=== PATIENT | female | born 1980 | race Caucasian/White ===

== ENCOUNTER 2024-01-20 08:51 | Outpatient (CLI) | payer BC, SELFPAY | END 2024-01-20 08:52 | disposition home or self-care (01) | PROVIDERS: PCP Physician Assistant Medical; Visit Provider Physician Assistant Medical | DX: Z00.00 Encounter for general adult medical examination without abnormal findings (principal); D50.9 Iron deficiency anemia, unspecified; E66.9 Obesity, unspecified; Z13.6 Encounter for screening for cardiovascular disorders; Z13.1 Encounter for screening for diabetes mellitus; Z13.0 Encounter for screening for diseases of the blood and blood-forming organs and certain disorders involving the immune mechanism | CPT/HCPCS: 80061; 80076; 82607; 82728; 83540; 83550; 84443 ==

== ENCOUNTER 2024-03-18 14:08 | Outpatient (CLI) | payer BC, SELFPAY ==
--- OUTSIDE RECORDS SUMMARY | 2024-03-18 14:13 | XMS_ITS | Clinical Summary ---
Author Organization [facility] Address [place], [place] [address] Care Team Providers Care Geospatial Developer Name Role Phone Dexter Molina MD Primary Care Provider + Allergies Active Allergy Reactions Criticality Noted Date Comments Acetaminophen GI Upset 06/22/2010 Adhesive Rash 01/05/2010 Amoxicillin Hives 05/15/2007 Ciprofloxacin Rash 10/11/2014 Also was on malarone and had been in sun. ?which was cause. Has tolerated levaquin. Codeine Nausea Only 07/15/2007 Hydrocodone-Acetaminoph en Headache,Vomiting 01/05/2010 Atovaquone-Proguanil Rash 10/11/2014 Face swelling and rash on trunk and arms. Had been in sun ? Photosensitivity. Also had taken one dose of ciprofloxacin. ?cause Nsaids (Non-Steroidal Anti-Inflammatory Drug) Other - Describe In Comment Field 06/26/2016 Patient had bariatric surgery. Should not ever take NSAIDS due to high risk for gastric ulcers. Pt has had laproscopic gastrectomy sleeve,should not use any nsaids. Penicillins Hives 01/09/2010 Medications Medication Sig Dispensed Refills Start Date End Date Status aspirin-acetaminop hen-caffeine, 250-250-65 mg, (EXCEDRIN EXTRA STRENGTH) 250-250-65 mg tablet Take 1 tablet by mouth every 6 hours if needed for Headache. Max acetaminophen dose: 4000mg in 24 hrs. Active Cholecalciferol, Vitamin D3, 5,000 unit tab Take 5,000 Units by mouth once daily. Active loratadine (CLARITIN) 10 mg tablet Take 10 mg by mouth once daily if needed for Allergy Symptoms. Mornings if needed Active cetirizine (ZYRTEC) 10 mg tablet Take 10 mg by mouth once daily if needed for Other (Specify). Take in the evening as needed Active NebulizerIndicatio ns:Moderate persistent asthma without complication Nebulizer, disposable neb kit x 4, reuseable neb kit x 1, mask x 1, filters x 1. 1 Device 07/29/2017 Active albuterol HFA (PRO-AIR; VENTOLIN; PROVENTIL) 90 mcg/actuation inhalerIndications :Mild intermittent asthma with acute exacerbation,Mild intermittent asthma with exacerbation Inhale 2 Puffs by mouth every 4 hours if needed. 1 Each 02/17/2021 Active albuterol-ipratrop ium (DuoNeb) (2.5-0.5 mg) in 3 mL NEBULIZATION solutionIndication s:Mild intermittent asthma with acute exacerbation,Mild intermittent asthma with exacerbation Inhale 3 mL via a nebulizer every 6 hours if needed. 1 box 3 02/17/2021 Active budesonide-formote roL (Symbicort) 160-4.5 mcg/actuation (160-4.5 mcg each actuation) inhalerIndications :Mild intermittent asthma with acute exacerbation Inhale 2 Puffs by mouth two times daily. 10.2 g 3 06/05/2022 Active BinaxNOW COVID-19 Ag Self Test kit TEST DIRECTED TODAY 09/13/2022 Active norethindrone, Contraceptive, (MICRONOR, 28,) 0.35 mg tablet 10/08/2022 Active omeprazole (PRILOSEC) 20 mg Delayed-Release capsuleIndications :Gastroesophageal reflux disease, unspecified whether esophagitis present TAKE 1 CAPSULE(20 MG) BY MOUTH EVERY DAY BEFORE A MEAL 90 Capsule 06/09/2023 Active hydrOXYzine HCL (ATARAX) 25 mg tabletIndications: Pruritus Take 1 Tablet (25 mg) by mouth every 6 hours if needed for Itching. 25 Tablet 11/21/2023 Active buPROPion (WELLBUTRIN XL) 300 mg Extended-Release tablet 01/20/2024 Active cyclobenzaprine (FLEXERIL) 10 mg tablet 01/20/2024 Active naltrexone (REVIA) 50 mg tablet 01/20/2024 Active medroxyPROGESTERon e acetate, contraceptive, (Depo-Provera) 150 mg/mL injection Inject 150 mg intramuscular. 03/03/2024 Active CPAPIndications:OS A (obstructive sleep apnea) CPAP machine for home use at pressure 4-15 cmw, nasal mask x1/3month with nasal cushion x2/mo 1 Each 11 02/04/2024 Active Active Problems Problem Noted Date Diagnosed Date B12 deficiency 06/06/2022 Colon polyp, due 08/202507/29/2019 Overview: 08/2022 - due 2024 5 mm sessile serrated adenoma in the transverse colon 3 mm hyperplastic polyp in the rectum 2018 4 mm sessile serrated adenoma in the transverse colon Two 3 mm hyperplastic polyps in the rectum Migraine with aura, not intr actable, without status migrainosus 11/03/2018 Achlorhydria 06/26/2016 Vitamin B 12 deficiency 06/26/2016 S/P laparoscopic sleeve gastrectomy 06/20/2016 Morbid obesity with BMI of 40.0-44.9, adult 06/09 DARIUS 06/26/2009 AHI-10 06/21/2014 PCOS (polycystic ovarian syndrome) 01/13/2013 Metabolic syndrome 01/13/2013 Irregular periods/menstrual cycles 12/23/2012 Allergic rhinitis, cause unspecified 09/10/2007 Unspecified asthma(493.90) 09/10/2007 Ganglion, unspecified 07/15/2007 Iron deficiency anemia Gastroesophageal reflux disease Resolved Problems Problem Noted Date Diagnosed Date Resolved Date Postoperative anemia due to acute blood loss 8 06/06/2022 Arrest of descent, delivered , current hospitalization 08/01/2018 06/06/2022 Polyhydramnios in third trimester 07/30/2018 06/06/2022 Well woman exam with routine gynecological exam 01/28/2015 01/23/2016 Sleep apnea 12/04/2012 01/28/2017 Overview: Mild. Doesn't tolerate CPAP. Ganglion, unspecified 07/18/20072007 Ultrasound scan to recheck l ow lying placenta, antepartum 06/06/2022 anomaly suspected but not found 06/06/2022 Umbilical cord cyst during p regnancy, antepartum 06/06/2022 Encounters Date Type Department Care Team Description 02/04/2024 2:00 PM CDT Office Visit [facility] [address] [place] [address] Basilio Calderón MD Sleep Follow-up 02/04/2024 Orders Only [facility] Scanner 1 scan: (1-Ord) 3B MEDICAL, COMPLIANCE REPORT, 02/04/2024 02/04/2024 Travel from Last 3 Months Immunizations Name Administration Dates Next Due AMB Influenza, IIV3 (Age >=3 years)(Flu Clinic Only) 07/07/2008 COVID-19 vaccine (C3Nano NTMill33 30mcg/0.3mL) PAPO NEGRON 08/30/2021,01/05/2021,12/15/2020 Hepatitis A (Adult) 07/12/2014 Hepatitis B (Peds) 01/20/2001,05/24/2000, 000 Human Papilloma Virus Vaccine 05/15/2007, 007,11/04/2006 Influenza Virus, Unspecified 06/01/2014, 06/03/2012,06/07/2011,06/07,07/04/2001,07/11/1999 Influenza, IIV3 (Age >=3 years) 06/02/2013,07/01 Meningococcal Vaccine (Menactra) 04/09/2000 Meningococcal Vaccine (Menomune) 04/09/2000 Pneumococcal Poly,23-Valent (Pneumovax) 07/12/2014 Td (Age >=7 Years) 03/29/1998 Td, Preservative Free (age >= 7 Years) 7 Tdap 05/16/2018,12/23/2012,03/29/1998 Typhoid (injectable) 07/12/2014 Yellow Fever 07/12/2014 Family History Medical History Relation Name Comments Diabetes Father Heart failure Father Hyperlipidemia Father Hypertension Father Other Father Obesity Valvular heart disease Father bicus pid Cancer Maternal Grandmother bladder Heart Disease Maternal Grandmother stents in heart Hyperlipidemia Maternal Grandmother Hyperlipidemia Mother Hypertension Mother Psychiatric illness Mother depressi on Heart Disease Paternal Grandfather Hyperlipidemia Paternal Grandfather Heart Disease Paternal Grandmother Hyperlipidemia Paternal Grandmother Mitral valve prolapse Paternal Grandmother Relation Name Status Comments Father Alive Maternal Grandmother Mother Alive Paternal Grandfather Paternal Grandmother Sister Alive Social History Tobacco Use Types Packs/Day Years Used Date Smoking Tobacco: Never Smokeless Tobacco: Never Tobacco Cessation:Counseling Given: Yes Alcohol Use Standard Drinks/Week Comments Yes 0 (1 standard drink = 0.6 oz pur e alcohol) very occational PHQ-2 Answer Date Recorded PHQ-2 TOTAL SCORE 2 11/06/2022 Social Connections Answer Date Recorded Frequency of Communication with Friends and Fami ly 0 11/21/2023 Financial Resource Strain Answer Date R ecorded Difficulty of Paying Living Expenses 3 11/21/2023 Difficulty of Paying Living Expenses Not on file 11/21/2023 Food Insecurity Answer Date Recorded Worried About Running Out of Food in the Last Ye ar 1 11/21/2023 Transportation Needs Answer Date Record ed Lack of Transportation (Medical) 1 11/21/2023 Housing Stability Answer Date Recorded Unable to Pay for Housing in the Last Year 1 11/21/2023 Sex and Gender Information Value Date Recorded Sex Assigned at Not on file Gender Identity Not on file Sexual Orientation Not on file Obstetrics History Para Term AB IAB SAB Ectopic Multiple Livin g Live Births 1 1 1 0 0 0 0 0 0 1 1 Date Outcome GA Total Labor Labor/2nd/3rd Weight Sex Type Anes PTL Aleena A1 A5 Name Clin 2017 Term 39w 2d 0h 02m 3.83 kg (8 lb 7.1 oz) M C-Sec tion Epidur al Livin g 9 9 Ho Rodrigo Delivery Location:[facility]) Last Filed Vital Signs Vital Sign Reading Time Taken Comments Blood Pressure 119/84 02/04/2024 2:03 PM CDT Pulse 67 02/04/2024 2:03 PM CDT Temperature 36.8 ??C (98.3 ??F) 11/21/2023 7:21 AM CD T Respiratory Rate 16 09/04/2022 12:1 5 PM QUALITY CONTROL SUPERVISOR Oxygen Saturation 97% 02/04/2024 2:03 PM CDT Inhaled Oxygen Concentration - - Weight 122.1 kg (269 lb 3.2 oz) 02/04/2024 2:03 PM CDT Height 165.1 cm (5' 5) 02/04/2024 2:03 PM CDT Body Mass Index 44.8 02/04/2024 2:03 PM CDT Plan of Treatment Health Maintenance Due Date Last Done Comments Pneumococcal series for age 6-64 (2 of 2 - PCV) 07/12/2015 07/12/2014 COVID-19 vaccine series (4 - 2022- season) 2023 08/30/2021, 01/05/2021, 12/15/2020 Depression screening for age 12+ 11/06/2023 11/06/2022, 11/06/2022, 06/12/2022, Additional history exists Influenza for age 9-49 05/10/2024 4, 06/01/2014, 06/02/2013, Additional history exists BMI (ht and wt on same day) for age 18+ 02/03/2025 02/04/2024, 11/06/2022, 06/12/2022, Additional history exists Pap test for age 21-65 07/29/2025 0, 07/29/2020, 01/02/2017, Additional history exists Colonoscopy through age 75 09/04/2025 09/04/2022, Tetanus booster 05/16/2028 05/16/2018, 12/08, 12/26/2006, Additional history exists Hepatitis C screening for ag e 18-79 Completed 06/20/2016 HIV for age 15-65 Completed 12/27/2017, 06/20/2016 Tdap Completed 05/16/2018, 12/08, 03/29/1998 Procedures Procedure Name Priority Date/Time Associated Diagnosis Comments SCAN-DIAGNOSTIC REPORT 02/04/2024 12:00 AM CDT COLONOSCOPY 09/04/2022 10:47 AM QUALITY CONTROL SUPERVISOR INTEGRATED LOGISTICS OPERATIONS MANAGER THIN PREP PAP SCREEN IMAGED Routine 07/29/2020 9:09 AM QUALITY CONTROL SUPERVISOR Cervical cancer screening ANTI HIV 1/2 Routine 12/27/2017 9:05 AM CDT Supervision of high-risk , first trimester EXPOSURE (BBF) ANTI HCV STAT 06/20/2016 11:11 AM CDT from Last 3 Months or Most Recently Relevant to Health Maintenance Results * SCAN-DIAGNOSTIC REPORT (02/04/2024 12:00 AM CDT) Scanner OTHER * COLONOSCOPY (09/04/2022 10:47 AM QUALITY CONTROL SUPERVISOR) 09/04/2022 10:4 7 AM QUALITY CONTROL SUPERVISOR Narrative Transcriptions David Blanco MD - 09/04/2022 11:52 AM CST Endoscopy Patient Name: Bhavya Clay Procedure Date: 09/04/2022 Gender: Female Date of : 1980 Admit Type: Outpatient Procedure: Colonoscopy Proceduralist: David Blanco MD Referring MD: Arleen Greco Indications/Pre-Op Diagnosis: Personal history of colonic polyps Medications: Monitored Anesthesia Care Procedure Description: The patient had risks, benefits and alternatives explained to andgave informed consent. The patient had a stable cardiopulmonary status and judged an adequate candidate for conscious sedation. The endoscope was passed through the anus and advanced to theterminal ileum, with identification of the appendiceal orifice and IC valve.The colonoscopy was performed without difficulty. The patient toleratedthe procedure well. The quality of the bowel preparation was good. The ileocecal valve, appendiceal orifice, and rectum were photographed. Complications: No immediate complications. Estimated Blood Loss & Specimen: Estimated blood loss was minimal. Specimen collected: Yes and sent to Laboratory Findings: The perianal and digital rectal examinations were normal. A 5 mm polyp was found in the transverse colon. The polyp wassessile. The polyp was removed with a hot snare. Resection and retrieval were complete. A 3 mm polyp was found in the rectum. The polyp was sessile. Thepolyp was removed with a hot biopsy forceps. Resection and retrieval were complete. The exam was otherwise without abnormality. Impressions/Post-Op Diagnosis: - One 5 mm polyp in the transverse colon, removed with a hot snare. Resected and retrieved. - One 3 mm polyp in the rectum, removed with a hot biopsy forceps. Resected and retrieved. - The examination was otherwise normal. Recommendation: - Follow up colonoscopy recommendations will depend on the pathologyof the polyps. - A letter will be sent to the patient with pathology results andfuture screening colonoscopy recommendations. David Blanco MD 09/04/2022 11:52:19 AM This report has been signed electronically. Note Initiated On: 09/04/2022 10:47 AM Total Procedure Duration Time 0 hours 13 minutes 14 seconds Scope Withdrawal Time 0 hours 9 minutes 53 seconds aDvid Blanco MD PROCEDURE ORD * INTEGRATED LOGISTICS OPERATIONS MANAGER THIN PREP PAP SCREEN IMAGED (07/29/2020 9:09 AM QUALITY CONTROL SUPERVISOR) Case Report Gynecologic Cytology Report ? Case: [id number] ? Authorizing Provider: ??Angelique Dsouza MD ?? Collected: ? 07/29/2020 0909 ? Ordering Location: ? [facility] ? Received: ?07/29/2020 0910 ? Clinic ? First Screen: ?Maria Antonia Gabriel ? Specimen: ?INTEGRATED LOGISTICS OPERATIONS MANAGER ThinPrep Vial Screening, Cervical ? 08/09/2020 8:27 AM [facility] ENTRAL LABORATORY INTERPRETATION/ RESULT NEGATIVE FOR INTRAEPITHELIAL LESION OR MALIGNANCY (NIL) (none) 08/09/2020 8:27 AM [facility] IMEN ADEQUACY Satisfactory for evaluation Endocervical component present 08/09/2020 8:27 AM QUALITY CONTROL SUPERVISOR [facility] HPV REQUEST HPV and PAP 08/09/2020 8:27 AM QUALITY CONTROL SUPERVISOR [facility] Date of LMP 07/17/2020 08/09/2020 8:27 AM QUALITY CONTROL SUPERVISOR [facility] Last Pap Date 01/02/17 08/09/2020 8:27 AM [facility] Last Pap Result NIL 0 8:27 AM QUALITY CONTROL SUPERVISOR [facility] Abnormal Pap or Alger Bx in last 5 years No 08/09/2020 8:27 AM QUALITY CONTROL SUPERVISOR [facility] Menstrual Status Regular Periods 08/09/2020 8:27 AM [facility] EN[facility] LAB[facility] Alger Bx Done Today No 08/09/2020 8:27 AM [facility] EN[facility] Additional Information None given 08/09/2020 8:27 AM [facility] Comment: Cytology is screened at [facility], Central Laboratory - [address], [place] [address] and [facility] - [address] [place] [address], [place] [address] and [facility] - [address] [place] [address] Interpreted at [facility] Central Laboratory - [address], [place] [address] Automated Review Successful 08/09/2020 8:27 AM QUALITY CONTROL SUPERVISOR [facility] ENTR[facility] LABORATORY Comment:Specimen processed s uccessfully by automated sales and marketing assistant device, ThinPrep Imaging System, [employer] ANCILLARY TESTING INTEGRATED LOGISTICS OPERATIONS MANAGER HPV Ordered, Please see separate report 08/09/2020 8:27 AM QUALITY CONTROL SUPERVISOR [facility] Note The pap test is a screening technique, not a diagnostic procedure. It is used primarily to screen for squamous cancers and precursor lesions. Published studies have shown that it is subject to both false negative and false positive results. The pap test should not be used as the sole means to diagnose or exclude pre-malignant and malignant lesions. 08/09/2020 8:27 AM QUALITY CONTROL SUPERVISOR [facility] Other (Cervical) Non-Blood / Unknown 07/29/2020 9:09 AM QUALITY CONTROL SUPERVISOR 07/29/2020 9:10 AM QUALITY CONTROL SUPERVISOR Angelique Dsouza MD PATHOLOGY/CYTOLOG Y [facility] [address] [place] [address], [place] * ANTI HIV 1/2 (12/27/2017 9:05 AM CDT) HIV-1/HIV-2 ANTIBODY Non-Reacti ve Non-Reacti ve 12/27/2017 1:43 PM CDT [facility] TR[facility] LABORAT[facility] Comment:HIV-1 p24 and HIV-1/ HIV-2 Ab not detected. Blood BLOOD SPECIMEN / Unknown Venipuncture / Unknown 12/27/2017 9:05 AM CDT 12/27/2017 9:27 AM CDT Angelique Dsouza MD SEND OUTS [facility] [address] [place] [address], * PATIENT SOURCE ANTI HCV (06/20/2016 11:11 AM CDT) HEPATITIS C ANTIBODY Non-Reacti ve Non-Reacti ve 06/20/2016 3:00 PM CDT [facility] TRAL LABORATORY Blood BLOOD SPECIMEN / Unknown Non-Lab Venipuncture / Unknown 06/20/2016 11:11 AM CDT 06/20/2016 11:20 AM CDT Narrative [facility] - 06/20/2016 3:00 PM CDT Antibodies to HCV not detected; does not exclude the possibility of exposure to HCV. Mary Kirkland CRNA SEND OUTS [facility] [address] [place] [address], from Last 3 Months or Most Recently Relevant to Health Maintenance Advance Directives * Full Code (Latest Code Status on File) Date Activated Date Inactivated Comments 09/04/2022 10:17 AM 09/04/2022 2:17 PM Question Answer Comments Code Status Discussion: Reviewed Preferences * Full Code Date Activated Date Inactivated Comments 08/18/2019 9:43 AM 08/18/2019 2:32 PM * Full Code Date Activated Date Inactivated Comments 07/28/2019 8:50 AM 07/28/2019 1:46 PM * Full Code Date Activated Date Inactivated Comments 07/30/2018 8:53 PM 08/04/2018 5:01 PM * Full Code Date Activated Date Inactivated Comments 07/30/2018 8:53 PM 07/30/2018 8:53 PM Care Teams Geospatial Developer Relationship Specialty [place] [address] [place] [address] PCP - General Family Practice 07/31/23
--- OUTSIDE RECORDS SUMMARY | 2024-03-18 14:13 | XMS_ITS | Encounter Summary ---
Author Organization [facility] Address [address] [place] [address] Care Team Providers Care Section Housekeeper Name Role Phone Keiry Baum PA-C Primary Care Provider Reason for Visit * Reason Comments Depo Provera Injection Encounter Details Date Type Department Care Team (Latest Contact Info) Description 03/13/2024 9:00 AM CDT Nursing Visit Nursing at [address] [phone] Depo-Provera contraceptive status (Primary Dx) Social History Tobacco Use Types Packs/Day Years Used Date Smoking Tobacco: Never Alcohol Use Standard Drinks/Week Comments Yes 0 (1 standard drink = 0.6 oz pur e alcohol) occ PHQ-2 Answer Date Recorded PHQ-2 Score 0 07/11/2023 Sex and Gender Information Value Date Recorded Sex Assigned at Not on file Gender Identity Not on file Sexual Orientation Not on file documented as of this encounter Nursing Notes * Essie Hay LPN - 03/13/2024 9:00 AM CDT Monserrat came in today to receive here depo injection. Last depo injection was received on 12/17/2023when she saw Dr. Dsouza. Depo was given in the adequate time frame. Calendar was given for when the next depo injection is due. Depo injection was given with no complications. Monserrat left in stable condition. documented in this encounter Plan of Treatment Not on file documented as of this encounter Visit Diagnoses Diagnosis Depo-Provera contraceptive status- Primary Surveillance of other previously prescribed contraceptive method documented in this encounter Administered Medications Active Administered Medications - up to 3 most recent administrations Medication Order MAR Action Action Date Dose Rate Site medroxyPROGESTERone (DEPO-PROVERA) injection 150 mg 150 mg, Intramuscular, EVERY 90 DAYS, First dose on Tu03/03/24 at 0000, Last dose on Sat11/28/24 at 0000, For 4 doses, If given for contraception other than within 4 days of delivery and last injection date was > 14 weeks ago, then obtain urine vs blood test and consult with prescriber. Wear gloves with administration. Administer by deep I.M. injection in the gluteal or deltoid muscle. HAZARDOUS DRUG Preparation: Single glove, gown; face mask optional Administration: Single glove Given 03/13/2024 8:53 AM CDT 150 mg Left Deltoid documented in this encounter Care Teams Section Housekeeper Relationship Specialty Start Date End Date Keiry Baum PA-C [address] [place] [address] PCP - General 07/03/13 documented as of this encounter
--- OUTSIDE RECORDS SUMMARY | 2024-03-18 14:13 | XMS_ITS | Clinical Summary ---
Author Organization [facility] Address [address] [place] [address] Care Team Providers Care Supervisor Pow[employer] Canning Name Role Phone Keiry Baum PA-C Primary Care Provider Source Comments You are receiving this document as you are listed as the primary care provider,follow-up provider, or the patient has been referred to you for consultation.This is in compliance with the Medicare and[facility] EHR Incentive Program,which states Providers who transition their patient to another setting of careor provider of care or refers their patient to another provider of care shouldprovide summary care record for each transition of care or referral. [facility] Allergies Active Allergy Reactions Criticality Noted Date Comments Acetaminophen Gastrointestinal 06/22/2010 Adhesive Rash 01/05/2010 Amoxicillin 07/03/2013 PN: Hives Atovaquone-Proguanil Hcl Rash 10/11/2014 Face swelling and rash on trunk and arms. Had been in sun ? Photosensitivity. Also had taken one dose of ciprofloxacin. ?cause Ciprofloxacin Rash 10/11/2014 Also was on malarone and had been in sun. ?which was cause. Has tolerated levaquin. Codeine Nausea 07/15/2007 Hydrocodone-Acetaminop hen 07/03/2013 PN: migraines Nsaids Other, see comments 06/19/2022 Pt has had laproscopic gastrectomy sleeve,should not use any nsaids. Penicillins Hives High 05/15/2007 Wound Dressing Adhesive 07/09/2013 Medications Medication Sig Dispensed Refills Start Date End Date Status aspirin-acetamin ophen-caffeine (AKA GENACED,EXCEDRIN ) 250-250-65 MG tablet Take 1 Tablet by mouth every 6 hours as needed (Take 1 tablet by mouth every 6 hours as needed.). 07/03/2013 Active cetirizine (AKA ZYRTEC) 10 MG tablet Take 1 Tablet (10 mg) by mouth daily. 07/03/2013 Active Ibuprofen (ADVIL OR) Take by mouth. 07/03/2013 Active budesonide-formo terol (SYMBICORT) 160-4.5 MCG/ACT inhaler 2 Puffs two times a day. 06/05/2022 Active Cyanocobalamin (VITAMIN B12) 3000 MCG SUBL Active omeprazole (PRILOSEC) 20 MG capsule Take 1 Capsule (20 mg) by mouth daily. Active Cholecalciferol 125 MCG (5000 UT) Take 5,000 Units by mouth. Active buPROPion (WELLBUTRIN XL) 150 MG 24 hour release tabletIndication s:Depression with anxiety (HRC) Take 1 Tablet (150 mg) by mouth daily. 90 Tablet 3 12/17/2023 12/16/2024 Active cyclobenzaprine (AKA FLEXERIL) 10 MG tablet Take 1 Tablet (10 mg) by mouth three times a day as needed (Take 10 mg by mouth 3 times daily as needed.). 07/03/2013 03/13/2024 Discontinued(*P atient decision or formulary issue) Hospital, Clinic, or Other Facility Administered Medication Ordered Dose Route Frequency Start Date End Date Status medroxyPROGESTERone (DEPO-PROVERA) injection 150 mgIndications:Excessive bleeding in premenopausal period 150 mg IM EVERY 90 DAYS 03/03/2024 02/25/2025 A ctive Active Problems Problem Noted Date Diagnosed Date Vitamin D deficiency 08/04/2023 Iron deficiency anemia 07/30/2023 Gastroesophageal reflux disease 07/30/2023 Morbid obesity with BMI of 45.0-49.9, adult 07/11 S/P laparoscopic sleeve gastrectomy 06/20/2016 Obstructive sleep apnea 06/21/2014 Left ankle instability 07/04/2013 PCOS (polycystic ovarian syndrome) 01/13/2013 Metabolic syndrome 01/13/2013 Irregular periods/menstrual cycles 12/23/2012 Abnormal uterine and vaginal bleeding, unspecifi ed Encounters Date Type Department Care Team Description 03/13/2024 9:00 AM CDT Nursing Visit Nursing at [facility] [address] [place] [address] Depo-Provera contraceptive status (Primary Dx) from Last 3 Months Immunizations Name Administration Dates Next Due 4vHPV (Gardasil) 05/15/2007,12/24/2006, 7 Flu Vac (3+ yrs) 06/01/2014, 3,06/03/2012,07/07/20 08,07/01/2007,07/04/2001,07/11/1999 Flu Vac Preserv Free (3+yrs) 06/07/2009 HepA Adult (19+ yrs) 07/12/2014 HepB Ped/Adol (0-18 yrs) 01/20/2001,05/24/2000,0 04/09/2000 Influenza, Unspecified Formulation 06/01,06/03/2012,06/07/2011,06/07/20 09,07/04/2001,07/11/1999 MCV4 (Menactra) 04/09/2000 MPSV4 (Menomune) 04/09/2000 PPSV23 (Pneumovax) 07/12/2014 Pfizer Monovalent 12+ Purple Top 08/30/2021,12/09,12/15/2020 Td 03/29/1998 Td, Preservative Free 12/26/2006 Tdap 05/16/2018,12/23/2012,03/29/1998 Typhoid (Typhim Vi, IM) 07/12/2014 YF (Yellow Fever) 07/12/2014 Family History Medical History Relation Name Comments Diabetes Father High Cholesterol Father Hypertension Father High Cholesterol Mother Hypertension Mother Cancer Maternal Grandmother bladder Heart Disease Maternal Grandmother stents High Cholesterol Maternal Grandmother Heart Disease Paternal Grandfather High Cholesterol Paternal Grandfather Heart Disease Paternal Grandmother High Cholesterol Paternal Grandmother Relation Name Status Comments Father Mother Maternal Grandmother Paternal Grandfather Paternal Grandmother Social History Tobacco Use Types Packs/Day Years Used Date Smoking Tobacco: Never Tobacco Cessation:Counseling Given: Not Answered Alcohol Use Standard Drinks/Week Comments Yes 0 (1 standard drink = 0.6 oz pur e alcohol) occ PHQ-2 Answer Date Recorded PHQ-2 Score 0 07/11/2023 Sex and Gender Information Value Date Recorded Sex Assigned at Not on file Gender Identity Not on file Sexual Orientation Not on file Last Filed Vital Signs Vital Sign Reading Time Taken Comments Blood Pressure 121/77 12/17/2023 8:50 AM CDT Pulse 87 12/17/2023 8:50 AM CDT Temperature - - Respiratory Rate 17 07/30/2023 2:32 PM CORPORATE SAFETY DIRECTOR Oxygen Saturation - - Inhaled Oxygen Concentration - - Weight 124.7 kg (275 lb) 12/17/2023 8:50 AM CDT Height 163.8 cm (5' 4.5) 12/17/2023 8:50 AM CDT Body Mass Index 46.47 12/17/2023 8:50 AM CDT Plan of Treatment Health Maintenance Due Date Last Done Comments Cervical Cancer Screening Due 1982 Hep C Screening (Preventive Services) 1980 HepA (2 of 2 - Risk 2-dose series) 01/09/2015 07/12/2014 COVID-19 Vaccine ( season) 2023 08/30/2021, 01/05/2021, 12/15/2020 Influenza (#1) 2024 06/01/2014, 05/11, 06/02/2013, Additional history exists Mammogram 07/31/2024 07/31/2023, 06/12/2022 Colonoscopy 09/04/2025 09/04/2022 (Completed) Adult Preventive Visit 12/16/2025 12/17/2023 Diabetes Screening- (based on age and BMI) 07/30/2026 07/30/2023, 06/05/2022 DTaP/Tdap/Td (5 - Tdap) 05/16/2028 05/16/20 18, 12/23/2012, 12/26/2006, Additional history exists Zoster/Shingles (1 of 2) 2032 MCV4 Aged Out 04/09/2000, 04/09/2000 No lo nger eligible based on patient's age to complete this topic HepB Completed 01/20/2001, 05/10, 04/09/2000 HPV Vaccine Completed 05/15/2007, 12/08, 11/04/2006 Pneumococcal Aged Out 07/12/2014 No longer eligi ble based on patient's age to complete this topic HIV Screening (Preventive Services) Completed 12/27/2017 Hib Aged Out No longer eligi ble based on patient's age to complete this topic IPV (Polio) Aged Out No longer eligi ble based on patient's age to complete this topic Procedures Procedure Name Priority Date/Time Associated Diagnosis Comments MM MAMMOGRAM SCREENING BILAT W 3D LYNDON W CAD Routine 07/31/2023 11:32 AM CORPORATE SAFETY DIRECTOR HGB A1C Routine 07/30/2023 3:09 PM CORPORATE SAFETY DIRECTOR Fatigue, unspecified type from Last 3 Months or Most Recently Relevant to Health Maintenance Results * Hgb A1C (07/30/2023 3:09 PM CORPORATE SAFETY DIRECTOR) Hemoglobin A1C 5.6 <=5.6 % 07/31/2023 9:35 AM CORPORATE SAFETY DIRECTOR [employer] Estimated Average Glucose (Calc) 114 < 117 mg/dL 07/31/2023 9:35 AM CORPORATE SAFETY DIRECTOR [facility] Comment:Estimated average gl ucose (eAG) converts A1c into glucose units (mg/dL) and estimates average glucose over the past approximately 3 months. The eAG reference interval (<117 mg/dL) corresponds to an A1c of <5.7%. Blood Venipuncture / Unknown 07/30/2023 3:09 PM CORPORATE SAFETY DIRECTOR 07/30/2023 3:09 PM CORPORATE SAFETY DIRECTOR Dexter Molina MD LAB_1 [facility] [address] [address] [phone] from Last 3 Months or Most Recently Relevant to Health Maintenance Care Teams Supervisor [employer] Relationship Specialty Start Date End Date Keiry Baum PA-C [address] [place] [address] PCP - General 07/03/13
--- OUTSIDE RECORDS SUMMARY | 2024-03-18 14:13 | XMS_ITS | Encounter Summary ---
Author Organization [facility] Address [address] [place] [address] Care Team Providers Care Prospecting Driller Name Role Phone Keiry Baum PA-C Primary Care Provider Reason for Referral * Consult/Transfer Care (Routine) - New Request Specialty Diagnoses / Procedures Referred By Jaylin t Referred To Contact Diagnoses BMI 45.0-49.9, adult (HRC) [place] [address] [place] [address] Referral ID Status Reason Start Date Expiration Date V isits Requested Visits Authorized [id number] New Request 12/17/2023 03/17/2025 1 1 Scheduling Instructions Your clinician has recommended an appointment with Christine Holbrook. You may call [phone] to schedule your appointment. We suggest you call your health insurance company about your coverage and benefits for this appointment. Question Answer Appointment Urgency? Non-Urgent Reason for visit? Needs Weight Loss Reason for Visit * Reason Comments Annual Exam Encounter Details Date Type Department Care Team (Latest Contact Info) Description 12/17/2023 8:45 AM CDT Office Visit [facility] [address] [facility]stetrics[facility]Gynecolog [facility] [address] [place] [phone] [place] [address] [place] [address] Encounter for gynecological examination without abnormal finding (Primary Dx); Depression with anxiety (HRC); BMI 45.0-49.9, adult (HRC); Excessive bleeding in premenopausal period Social History Tobacco Use Types Packs/Day Years [...] on file documented as of this encounter Last Filed Vital Signs Vital Sign Reading Time Taken Comments Blood Pressure 121/77 12/17/2023 8:50 AM CDT Pulse 87 12/17/2023 8:50 AM CDT Temperature - - Respiratory Rate - - Oxygen Saturation - - Inhaled Oxygen Concentration - - Weight 124.7 kg (275 lb) 12/17/2023 8:50 AM CDT Height 163.8 cm (5' 4.5) 12/17/2023 8:50 AM CDT Body Mass Index 46.47 12/17/2023 8:50 AM CDT documented in this encounter Progress Notes * Tania Dsouza MD - 12/17/2023 8:45 AM CDTAddended by: TANIA DSOUZA on: 12/17/2023 01:26 PM Modules accepted: Orders * Tania Dsouza MD - 12/17/2023 8:45 AM CDT Preventive Exam & Pelvic SUBJECTIVE: Pt is a 43 y.o. female here for her well woman exam. The patient reports no bleeding since starting depo in Jul, although she has gained 15#. She is currently sexually active, without concerns. She is using Depo as contraception. Her last pap was normal. Pap due 2024 Mammo due 08/02 Colonoscopy normal 2021 Contraception Depo Dexa no Covid yes Influenza yes Past Medical History Past Medical History: Diagnosis Date Asthma (HRC) Ganglion, unspecified site Hiatal hernia PCOS (polycystic ovarian syndrome) (HRC) S/P bariatric surgery Past Surgical History Past Surgical History: Procedure Laterality Date ankle surgey BREAST SURGERY reduction colon polyps GASTRIC BYPASS TONSILLECTOMY adenoids Medications Outpatient Medications Prior to Visit Medication Sig Dispense Refill fhfvtos-oggvbrytnwfns-xkujlnal (AKA GENACED,EXCEDRIN) 250-250-65 MG tablet Take 1 Tablet by mouth every 6 hours as needed (Take 1 tablet by mouth every 6 hours as needed.). budesonide-formoterol (SYMBICORT) 160-4.5 MCG/ACT inhaler 2 Puffs two times a day. cetirizine (AKA ZYRTEC) 10 MG tablet Take 1 Tablet (10 mg) by mouth daily. Cholecalciferol 125 MCG (5000 UT) Take 5,000 Units by mouth. Cyanocobalamin (VITAMIN B12) 3000 MCG SUBL cyclobenzaprine (AKA FLEXERIL) 10 MG tablet Take 1 Tablet (10 mg) by mouth three times a day as needed (Take 10 mg by mouth 3 times daily as needed.). Ibuprofen (ADVIL OR) Take by mouth. omeprazole (PRILOSEC) 20 MG capsule Take 1 Capsule (20 mg) by mouth daily. Facility-Administered Medications Prior to Visit Medication Dose Route Frequency Provider Last Rate Last Admin medroxyPROGESTERone (DEPO-PROVERA) injection 150 mg 150 mg Intramuscular [id number] Tania Dsouza MD 150 mg at 09/30/23 1517 OB History OB History Para Term AB Living 1 1 1 0 0 1 SAB IAB Ectopic Multiple Live Births 0 0 0 0 1 # Outcome Date GA Lbr Trace/2nd Weight Sex Delivery Anes PTL Lv 1 Term 08/01/18 39w2d 8 lb 7.1 oz (3.83 kg) M CS-Unspec EPI GENA Name: Ho Rodrigo Apgar1: 9 Apgar5: 9 Allergies Penicillins, Acetaminophen, Adhesive, Amoxicillin, Atovaquone-proguanil hcl, Ciprofloxacin, Codeine, Hydrocodone-acetaminophen, Nsaids, and Wound dressing adhesive Family History Family History Problem Relation Age of Onset High Cholesterol Mother Hypertension Mother Hypertension Father High Cholesterol Father Diabetes Father High Cholesterol Maternal Grandmother Heart Disease Maternal Grandmother stents Cancer Maternal Grandmother bladder High Cholesterol Paternal Grandmother Heart Disease Paternal Grandmother High Cholesterol Paternal Grandfather Heart Disease Paternal Grandfather Social History Social History Tobacco Use Smoking status: Never Smokeless tobacco: Not on file Vaping Use Vaping status: Never Used Substance Use Topics Alcohol use: Yes Comment: occ Drug use: No Preventive Health Assessment: Calcium intake adequate. Uses seatbelts. Tetanus immunization is up-to-date. Review of Systems: With the exception of any items noted above, the remainder of complete ROS is negative. OBJECTIVE: Filed Vitals: 12/17/23 0850 BP: 121/77 Pulse: 87 Weight: 275 lb (124.7 kg) Height: 5' 4.5 (1.638 m) Estimated body mass index is 46.47 kg/m?? as calculated from the following: Height as of this encounter: 5' 4.5 (1.638 m). Weight as of this encounter: 275 lb (124.7 kg). General: Patient alert, in NAD. HEENT: PERRLA. Neck: Supple, without thyromegaly or mass. CV: RRR without murmurs, rubs or gallops. Resp: Clear to auscultation without crackles, wheezes or distress. Abdomen: Soft, non-tender, without hepatosplenomegaly, masses, or hernias. Breasts: Nontender, without masses, nipple discharge, erythema, or axillary adenopathy. Pelvic: Normal external genitalia and urethra. [place], moist vaginal and cervical mucosa, without lesions. On bimanual exam, uterus is mobile, normal size, shape & consistency, with no uterine or adenexal masses appreciated. Rectal: Not examined. Lymphatic: No neck, supraclavicular, axillary or groin lymphadenopathy. Skin: No lesions. Neuro: CN II-XII grossly intact. Psychiatric: Alert & oriented with normal affect and insight, does not appear depressed or anxious. ASSESSMENT: Routine preventive exam. Healthy female. Normal exam. PLAN: Diagnosis and Associated Orders ICD-10-CM 1. Encounter for gynecological examination without abnormal finding Z01.419 2. Depression with anxiety ([facility]) F41.8 buPROPion (WELLBUTRIN XL) 150 MG 24 hour release tablet 3. BMI 45.0-49.9, adult ([facility]) Z68.42 Nutrition/Dietitian Will call patient with results of labs only if abnormal. Immunizations reviewed and updated in Epic Discussed with patient: Breast self-exam recommended. Recommended adequate calcium intake/osteoporosis prevention. Recommended a balanced nutritious diet. Benefits of regular exercise. Mammogram screening. Recommended seat belt (& motorcycle helmet) use. AUB -well controlled on Depo -has gained 15# Anxiety/Depression -working with ADHD/neurodivergent son -would like to start Wellbutrin Weight gain -would like to see a service desk manager Tania Dsouza MD 9:35 AM 12/17/2023 30 minutes spent reviewing previous lab results, performing exam and preparing plan of care documented in this encounter Nursing Notes * Lilly Gama CMA - 12/17/2023 8:45 AM CDT Annual exam today. Satisfied with depo provera, but notes wt gain with it. Depo shot was given today, 12/17/23 from original order of 01/2023. Given in the Left Deltoid IM, pttolerated inj well. Next dose is due between 03/03/2024 and 03/17/2024. New yearly order placed by provider. documented in this encounter Plan of Treatment Scheduled Referrals Name Type Priority Associated Diagnoses Orde r Schedule Nutrition/Dietitian Referral Routine BMI 45.0-49.9, adult (HR) Ordered: 12/17/2023 documented as of this encounter Visit Diagnoses Diagnosis Encounter for gynecological examination without abnormal finding- Primary Routine gynecological examination Depression with anxiety (HR) Dysthymic disorder BMI 45.0-49.9, adult (HRC) Body Mass Index 45.0-49.9, adult Excessive bleeding in premenopausal period Premenopausal menorrhagia documented in this encounter Administered Medications Inactive Administered Medications - up to 3 most recent administrations Medication Order MAR Action Action Date Dose Rate Site medroxyPROGESTERone (DEPO-PROVERA) injection 150 mg 150 mg, Intramuscular, EVERY 90 DAYS, First dose on Mimi 01/31/23 at 1015, Last dose on Sat10/28/23 at 1015, For 4 doses, If given for contraception other than within 4 days of delivery and last injection date was > 14 weeks ago, then obtain urine vs blood test and consult with prescriber. Wear gloves with administration. Administer by deep I.M. injection in the gluteal or deltoid muscle. Preparation: Single glove, gown; face mask optional Administration: Single glove Given 12/17/2023 11:18 AM CDT 150 mg Left Deltoid Given 09/30/2023 3:17 PM WARHEAD MAINTENANCE SPECIALIST 150 mg Le ft Deltoid Given 04/19/2023 1:00 PM CDT 150 mg Le ft Deltoid documented in this encounter Care Teams Prospecting Driller Relationship Specialty Start Date End Date Keiry Baum PA-C [address] [place] [address] PCP - General 07/03/13 documented as of this encounter
== END 2024-03-18 14:09 | disposition home or self-care (01) ==
PROVIDERS: PCP Physician Assistant Medical; Visit Provider Physician Assistant Medical
DX: R53.83 Other fatigue (principal); E66.9 Obesity, unspecified; D72.819 Decreased white blood cell count, unspecified
CPT/HCPCS: 82728; 83540; 83550

== ENCOUNTER 2024-10-12 09:13 | Outpatient (CLI) | payer BC, SELFPAY | END 2024-10-12 09:14 | disposition home or self-care (01) | PROVIDERS: PCP Physician Assistant Medical; Visit Provider Physician Assistant Medical | DX: D50.9 Iron deficiency anemia, unspecified (principal); E66.9 Obesity, unspecified; R53.83 Other fatigue | CPT/HCPCS: 82306; 83540; 83550 ==

== ENCOUNTER 2025-05-13 09:43 | Outpatient (CLI) | payer BC, SELFPAY | END 2025-05-13 09:44 | disposition home or self-care (01) | LOC: NFLDREF 05-19 08:12 | PROVIDERS: PCP Physician Assistant Medical; Referring Provider Physician Assistant Medical; Visit Provider Physician Assistant Medical | DX: M54.12 Radiculopathy, cervical region (principal); R51.9 Headache, unspecified; G89.29 Other chronic pain; E66.9 Obesity, unspecified; Z86.0100 Personal history of colon polyps, unspecified; Z00.00 Encounter for general adult medical examination without abnormal findings; D50.9 Iron deficiency anemia, unspecified; F41.9 Anxiety disorder, unspecified; F32.A Depression, unspecified; M54.9 Dorsalgia, unspecified; F43.9 Reaction to severe stress, unspecified | CPT/HCPCS: 80053; 80061; 82728; 84443 ==

== ENCOUNTER 2025-06-25 08:31 | Outpatient (CLI) | payer BC, SELFPAY ==
[2025-06-25 14:17] LABS: Chlamydia DNA Amplified* NOT DETECTED (No Detected); GC DNA Amplified* NOT DETECTED (No Detected)
[2025-06-29 18:26] LABS: HPV Source Cervix
[2025-06-30 08:27] LABS: Pap Test Digital Imaging Done
== END 2025-06-25 08:32 | disposition home or self-care (01) ==
PROVIDERS: PCP Physician Assistant Medical; Visit Provider Physician Assistant Medical
DX: Z00.00 Encounter for general adult medical examination without abnormal findings (principal); E53.8 Deficiency of other specified B group vitamins; D50.9 Iron deficiency anemia, unspecified
CPT/HCPCS: 87491; 87591; 87624; 87625; 88141; 88142; 88175

== ENCOUNTER 2025-09-03 14:40 | Outpatient (CLI) | payer BC, SELFPAY | END 2025-09-03 14:41 | disposition home or self-care (01) | LOC: NFLDREF 09-06 12:51 | PROVIDERS: PCP Physician Assistant Medical; Referring Provider Physician Assistant Medical; Visit Provider Physician Assistant Medical | DX: E53.8 Deficiency of other specified B group vitamins (principal); D50.9 Iron deficiency anemia, unspecified | CPT/HCPCS: 82607; 82728 ==

== ENCOUNTER 2025-09-03 14:50 | Outpatient (CLI) | payer BC, SELFPAY ==
--- NOTE | 2025-09-03 15:20 | CRLHL7_ITS ---
For Patients: As a result of the Cures Act, medical imaging exams and procedure reports are released immediately into your electronic medical record. You may view this report before your referring provider. If you have questions, please contact your health care provider. INDICATION: BILATERAL SCREENING MAMMOGRAM, ASYMPTOMATIC 45 Y/O FEMALE COMPARISON: 09/12/2021 TECHNIQUE: Digital mammogram in CC and MLO projections including computer-aided detection (CAD) and tomosynthesis. BREAST COMPOSITION: There are scattered areas of fibroglandular density. FINDINGS: No suspicious findings. ASSESSMENT: BI-RADS 2 Benign RECOMMENDATION: Annual screening mammogram. A lay language report of this examination will be provided to the patient. Dictated by: Lea Parrish MD @ 09/03/2025 15:29:07 (Electronically Signed)
== END 2025-09-03 14:51 | disposition home or self-care (01) ==
LOC: MAMMO 14:51
PROVIDERS: PCP Physician Assistant Medical; Visit Provider Physician Assistant Medical
DX: Z12.31 Encounter for screening mammogram for malignant neoplasm of breast (principal); E53.8 Deficiency of other specified B group vitamins; D50.9 Iron deficiency anemia, unspecified
CPT/HCPCS: 77063; 77067